=== PATIENT | female | born 1965 | race Caucasian/White ===

== ENCOUNTER → 2017-04-02 | Outpatient (CLI) | payer BC | LOC: MAMMO 14:49 | DX: Z12.31 Encounter for screening mammogram for malignant neoplasm of breast (principal) | CPT/HCPCS: G0202 ==

== ENCOUNTER → 2017-08-04 | Day surgery (SDC) | payer BC | LOC: MSO 08:41 | DX: Z12.11 Encounter for screening for malignant neoplasm of colon (principal); D12.3 Benign neoplasm of transverse colon; D12.5 Benign neoplasm of sigmoid colon; K63.5 Polyp of colon; F17.210 Nicotine dependence, cigarettes, uncomplicated | CPT/HCPCS: 00810; J2704; J3010; J7120 ==

== ENCOUNTER 2017-11-11 14:30 | Outpatient (RCR) | payer BC | END 2017-12-07 | disposition home or self-care (01) | LOC: PT | DX: Z47.89 Encounter for other orthopedic aftercare (principal) ==

== ENCOUNTER → 2018-04-22 | Outpatient (CLI) | payer BC | LOC: MAMMO 13:58 | DX: Z12.31 Encounter for screening mammogram for malignant neoplasm of breast (principal); Z98.890 Other specified postprocedural states ==

== ENCOUNTER 2018-05-27 14:00 | Outpatient (RCR) | payer BC | END 2018-05-27 14:30 | disposition home or self-care (01) | LOC: PT 14:00 | DX: Z47.89 Encounter for other orthopedic aftercare (principal) ==

== ENCOUNTER 2018-09-21 13:30 | Outpatient (RCR) | payer BC | END 2018-09-21 14:00 | disposition home or self-care (01) | LOC: PT 13:30 | DX: Z47.89 Encounter for other orthopedic aftercare (principal) ==

== ENCOUNTER → 2019-05-04 | Outpatient (CLI) | payer BC | LOC: MAMMO 14:12 | DX: Z12.31 Encounter for screening mammogram for malignant neoplasm of breast (principal) ==

== ENCOUNTER → 2020-05-17 | Outpatient (CLI) | payer BC | LOC: MAMMO 14:10 | DX: Z12.31 Encounter for screening mammogram for malignant neoplasm of breast (principal) ==

== ENCOUNTER → 2020-06-12 | Outpatient (CLI) | payer BC | LOC: RAD 14:38 → MAMMO 15:15 → RAD 15:15 | DX: Z13.820 Encounter for screening for osteoporosis (principal); Z87.81 Personal history of (healed) traumatic fracture ==

== ENCOUNTER → 2020-06-15 | Outpatient (CLI) | payer BC | LOC: RAD 09:00 | DX: R07.81 Pleurodynia (principal) ==

== ENCOUNTER → 2020-06-29 | Outpatient (CLI) | payer BC | LOC: LAB 10:16 | DX: Z01.818 Encounter for other preprocedural examination (principal); Z20.828 Contact with and (suspected) exposure to other viral communicable diseases ==

== ENCOUNTER → 2020-07-03 | Day surgery (SDC) | payer BC | LOC: MSO 07:43 | DX: Z12.11 Encounter for screening for malignant neoplasm of colon (principal); D12.0 Benign neoplasm of cecum; D12.3 Benign neoplasm of transverse colon; D12.5 Benign neoplasm of sigmoid colon | CPT/HCPCS: 00811; J2704; J7120 ==

== ENCOUNTER 2021-04-12 21:28 | Emergency (ER) | payer BC ==
[~2021-04-12] VITALS: Ht 172.7 cm; Wt 81.8 kg
[2021-04-12] MEDS ORDERED: LEVOTHYROXIN0.075 MG PO (21:52)
[2021-04-12 23:17] LABS: BASO # 0.03 (0.02-0.10); EOS # 0.28 (0.04-0.40); EOS % 2.5 % (1.0-5.0); HEMATOCRIT 44.4 % (37.0-47.0); HEMOGLOBIN 14.9 g/dL (12.5-16.0); LYMPH# 3.52 (1.50-4.00); MEAN CELL VOLUME 91 fl (78-100); MEAN CORPUSCULAR HEMOGLOBIN 30 pg (27-31); MEAN CORPUSCULAR HGB CONC 34 g/dL (33-37); MONO # 0.62 (0.20-0.80); NEU # 6.84 (1.40-6.50); PLATELET COUNT 254 K/mm3 (130-400); WHITE BLOOD COUNT 11.3 K/mm3 (4.8-10.8)
[2021-04-12 23:25] LABS: ALBUMIN 3.7 g/dL (3.5-5.0)
[2021-04-12 23:26] LABS: POTASSIUM 3.7 mmol/L (3.5-5.1)
[2021-04-12 23:27] LABS: CALCIUM 9.6 mg/dL (8.3-10.5)
[2021-04-12 23:28] LABS: TOTAL PROTEIN 7.2 g/dL (6.4-8.3)
[2021-04-12 23:30] LABS: TOTAL BILIRUBIN 0.2 mg/dL (0.2-1.2)
[2021-04-12 23:49] VITALS: BP 128/91
== END 2021-04-12 23:49 | disposition home or self-care (01) ==
LOC: ED 21:28
PROVIDERS: Nurse Practitioner Family
DX: R07.89 Other chest pain (principal); E07.9 Disorder of thyroid, unspecified; F17.210 Nicotine dependence, cigarettes, uncomplicated; Z79.890 Hormone replacement therapy
CPT/HCPCS: J1885

== ENCOUNTER 2021-06-27 10:30 | Outpatient (RCR) | payer BC ==
[~2021-06-27 10:30] MED LIST: LEVOTHYROXIN0.075 MG PO
== END 2021-07-12 17:00 | disposition home or self-care (01) ==
LOC: PT 10:30
DX: S32.030D Wedge compression fracture of third lumbar vertebra, subsequent encounter for fracture with routine healing (principal)

== ENCOUNTER 2022-05-01 13:59 | Outpatient (RCR) | payer BC | END 2022-05-24 | disposition still patient (30) | LOC: PT | DX: M17.12 Unilateral primary osteoarthritis, left knee (principal) ==

== ENCOUNTER 2022-05-30 14:00 | Outpatient (RCR) | payer BC | END 2022-06-24 | disposition still patient (30) | LOC: PT | DX: M17.12 Unilateral primary osteoarthritis, left knee (principal) ==

== ENCOUNTER 2022-06-26 13:30 | Outpatient (RCR) | payer BC | END 2022-07-24 | disposition home or self-care (01) | LOC: PT | DX: M17.12 Unilateral primary osteoarthritis, left knee (principal) ==

== ENCOUNTER → 2022-09-25 | Outpatient (CLI) | payer BC | LOC: RAD 09:09 | DX: M16.11 Unilateral primary osteoarthritis, right hip (principal); M47.816 Spondylosis without myelopathy or radiculopathy, lumbar region; M51.36 Other intervertebral disc degeneration, lumbar region; M43.8X6 Other specified deforming dorsopathies, lumbar region ==

== ENCOUNTER → 2022-11-22 | Outpatient (CLI) | payer BC | LOC: RAD 14:31 | DX: Z01.818 Encounter for other preprocedural examination (principal) ==

== ENCOUNTER 2023-06-26 13:59 | Outpatient (RCR) | payer BC ==
[~2023-06-26 13:59] MED LIST changes: +CIPRO500 M1 PO; +COL-RITE100 M1 PO; +PERCOCET 325 MG1 TA2 PO
== END 2023-07-24 | disposition home or self-care (01) ==
LOC: OT
DX: Z96.692 Finger-joint replacement of left hand (principal)

== ENCOUNTER 2023-07-28 08:00 | Outpatient (RCR) | payer BC | END 2023-08-24 | disposition home or self-care (01) | LOC: OT | DX: Z98.890 Other specified postprocedural states (principal) ==

== ENCOUNTER 2023-08-26 08:00 | Outpatient (RCR) | payer BC | END 2023-09-24 | disposition home or self-care (01) | LOC: OT | DX: Z96.692 Finger-joint replacement of left hand (principal) ==

== ENCOUNTER → 2023-09-25 | Outpatient (CLI) | payer BC | LOC: MAMMO 13:59 | DX: Z12.31 Encounter for screening mammogram for malignant neoplasm of breast (principal) ==

== ENCOUNTER → 2023-09-27 | Outpatient (CLI) | payer BC ==
[2023-09-27 07:45] LABS: BASO # 0.01 K/mm3 (0.02-0.10); EOS # 0.16 K/mm3 (0.04-0.40); EOS % 1.5 % (1.0-5.0); HEMATOCRIT 47.5 % (37.0-47.0); MEAN CELL VOLUME 90 fl (78-100); MEAN CORPUSCULAR HEMOGLOBIN 30 pg (27-31); MEAN CORPUSCULAR HGB CONC 34 g/dL (33-37); MEAN PLATELET VOLUME 8.9 fl (7.4-10.4); MONO # 0.68 K/mm3 (0.20-0.80); NEU # 7.16 K/mm3 (1.40-6.50); PLATELET COUNT 284 K/mm3 (130-400); RED BLOOD COUNT 5.28 M/mm3 (4.10-5.30); WHITE BLOOD COUNT 10.6 K/mm3 (4.8-10.8)
[2023-09-27 08:09] LABS: ALBUMIN 4.3 g/dL (3.5-5.0)
[2023-09-27 08:10] LABS: CALCIUM 9.5 mg/dL (8.3-10.5)
[2023-09-27 08:12] LABS: TOTAL PROTEIN 7.6 g/dL (6.4-8.3)
[2023-09-27 08:13] LABS: TOTAL BILIRUBIN 0.44 mg/dL (0.2-1.2)
[2023-09-27 08:18] LABS: PH-URINE 5.5 (5.0 - 8.0); URINE APPEARANCE CLEAR (CLEAR); URINE BILIRUBIN 1+ (NEGATIVE); URINE BLOOD 1+ (NEGATIVE); URINE COLOR YELLOW (YELLOW); URINE GLUCOSE NEGATIVE (NEGATIVE); URINE KETONE NEGATIVE (NEGATIVE); URINE LEUKOCYTE ESTERASE NEGATIVE (NEGATIVE); URINE NITRATE NEGATIVE (NEGATIVE); URINE PROTEIN(semi-quant) NEGATIVE (NEGATIVE)
== END ==
LOC: LAB 07:31
PROVIDERS: Family Medicine
DX: Z00.00 Encounter for general adult medical examination without abnormal findings (principal); D72.829 Elevated white blood cell count, unspecified

== ENCOUNTER → 2024-10-13 | Outpatient (CLI) | payer BC | LOC: MAMMO 13:24 | DX: Z12.31 Encounter for screening mammogram for malignant neoplasm of breast (principal) ==

== ENCOUNTER → 2024-10-16 | Outpatient (CLI) | payer BC ==
[2024-10-16 08:20] LABS: BASO # 0.01 K/mm3 (0.02-0.10); EOS # 0.18 K/mm3 (0.04-0.40); EOS % 1.9 % (1.0-5.0); HEMATOCRIT 47.6 % (37.0-47.0); HEMOGLOBIN 15.7 g/dL (12.5-16.0); LYMPH# 2.66 K/mm3 (1.50-4.00); MEAN CELL VOLUME 91 fl (78-100); MEAN CORPUSCULAR HEMOGLOBIN 30 pg (27-31); MEAN CORPUSCULAR HGB CONC 33 g/dL (33-37); MEAN PLATELET VOLUME 8.6 fl (7.4-10.4); MONO # 0.65 K/mm3 (0.20-0.80); NEU # 5.95 K/mm3 (1.40-6.50); PLATELET COUNT 255 K/mm3 (130-400); RED BLOOD COUNT 5.22 M/mm3 (4.10-5.30); WHITE BLOOD COUNT 9.5 K/mm3 (4.8-10.8)
[2024-10-16 08:47] LABS: CALCIUM 9.7 mg/dL (8.3-10.5)
[2024-10-16 08:49] LABS: TOTAL PROTEIN 7.7 g/dL (6.4-8.3)
[2024-10-16 08:51] LABS: TOTAL BILIRUBIN 0.5 mg/dL (0.2-1.2)
[2024-10-16 11:25] LABS: PH-URINE 5.5 (5.0 - 8.0); URINE APPEARANCE CLEAR (CLEAR); URINE BILIRUBIN NEGATIVE (NEGATIVE); URINE BLOOD TRACE-INTACT (NEGATIVE); URINE COLOR YELLOW (YELLOW); URINE GLUCOSE NEGATIVE (NEGATIVE); URINE KETONE NEGATIVE (NEGATIVE); URINE LEUKOCYTE ESTERASE NEGATIVE (NEGATIVE); URINE NITRATE NEGATIVE (NEGATIVE); URINE PROTEIN(semi-quant) NEGATIVE (NEGATIVE)
== END ==
LOC: LAB 08:04
PROVIDERS: Family Medicine
DX: D58.2 Other hemoglobinopathies (principal)